=== PATIENT | male | born 1990 | race Caucasian/White ===

== ENCOUNTER 2016-11-16 20:28 | Emergency (ER) | payer BC, OTHER ==
[~2016-11-16] VITALS: Ht 172.7 cm; Wt 87.1 kg
[2016-11-16 20:30] VITALS: Ht 172.7 cm; Wt 87.1 kg
[2016-11-16] MEDS ORDERED: OXYCODONE/ACETAMINOPHEN 5-325 TAB PO ONE (21:00)
--- NOTE | 2016-11-16 21:21 | DIAGNOSTIC IMAGING REPORT ---
LEFT CLAVICLE CLINICAL HISTORY: Left clavicular pain status post trauma COMPARISON: None. DISCUSSION: No fractures are visualized. If there is clinical concern over the presence of an AC joint separation, dedicated views of the AC joints without and with weights could be obtained in follow-up. IMPRESSION: No fractures identified. Electronically signed by: Jordan Velez M.D. 11/16/2016 9:20 PM Dictated Date/Time: 11/16/2016 9:19 PM
--- NOTE | 2016-11-16 21:21 | DIAGNOSTIC IMAGING REPORT ---
LEFT SHOULDER MIN 2 VIEWS ROUTINE CLINICAL HISTORY: Left shoulder pain status post trauma COMPARISON: None. DISCUSSION: No fractures or dislocations of the proximal humerus are visualized. There is equivocal slight superior offset of the clavicle with respect to the acromion. An AC joint separation cannot be excluded. IMPRESSION: 1. No fractures or dislocations the proximal humerus 2. AC joint separation cannot be excluded. If this is a clinical concern, views of the AC joints without and with weights could be obtained in follow-up Electronically signed by: Jordan Velez M.D. 11/16/2016 9:19 PM Dictated Date/Time: 11/16/2016 9:18 PM
[2016-11-16] MEDS ORDERED: MONT1TAB3 PO (21:24)
[2016-11-16] MEDS ORDERED: FEXO1TAB49 PO (21:24)
[2016-11-16] MEDS ORDERED: OXYC-57 PO (21:49)
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
[2016-11-16 22:54] VITALS: BP 142/92; PULSE 84; O2SAT 97
[2016-11-16] MEDS ORDERED: PERCOCET HOME PACK PO ONE (23:00)
== END 2016-11-16 22:55 | disposition home or self-care (01) ==
LOC: C.EDB 20:30 → C.EDD 22:55
DX: S49.92XA Unspecified injury of left shoulder and upper arm, initial encounter (principal); V86.59XA Driver of other special all-terrain or other off-road motor vehicle injured in nontraffic accident, initial encounter